=== PATIENT | female | born 1990 | race Two or more races ===

== ENCOUNTER 2020-11-03 19:16 | Emergency (ER) | payer OTHER ==
[~2020-11-03] VITALS: Ht 160 cm; Wt 71.7 kg
== END 2020-11-03 22:01 | disposition home or self-care (01) ==
LOC: ER 19:16
DX: R00.0 Tachycardia, unspecified (principal); T39.395A Adverse effect of other nonsteroidal anti-inflammatory drugs [NSAID], initial encounter

== ENCOUNTER 2023-03-14 16:39 | Emergency (ER) | payer OTHER ==
[~2023-03-14] VITALS: Ht 162.6 cm; Wt 74.8 kg
[2023-03-14 18:14] LABS: HEMATOCRIT 36.8 % (36.0-45.00); HEMOGLOBIN 12.7 g/dL (12.0-15.00); MEAN CELL VOLUME 87.7 fL (80.00-100.00); MEAN CORPUSCULAR HEMOGLOBIN 30.3 pg (27.00-32.0); MEAN CORPUSCULAR HGB CONC 34.5 g/dl (32.0-36.0); PLATELET COUNT 263 K/uL (150-450); RED BLOOD COUNT 4.19 M/uL (4.00-6.00); RED CELL DISTRIBUTION WIDTH 13.4 % (11.5-14.5)
[2023-03-14 18:43] LABS: ALBUMIN 3.7 gm/dL (3.4-5.0); BILIRUBIN TOTAL 0.58 mg/dL (0.3-1.2); CALCIUM 9.1 mg/dL (8.5-10.1); CREATININE SERUM 0.96 mg/dL (0.55-1.02); GFR 66.53; POTASSIUM 3.89 mEq/L (3.5-5.1); TOTAL PROTEIN 7.7 gm/dL (6.4-8.2)
[2023-03-14] MEDS ORDERED: PEPCID AC20 MG PO (20:59)
[2023-03-14] MEDS ORDERED: CIPRO500 MG PO (20:59)
[2023-03-14] MEDS ORDERED: ZOFRAN8 MG PO (20:59)
== END 2023-03-14 21:14 | disposition home or self-care (01) ==
LOC: ER 16:40
PROVIDERS: General Practice
DX: K52.89 Other specified noninfective gastroenteritis and colitis (principal)